=== PATIENT | male | born 1950 | race Caucasian/White ===

== ENCOUNTER 2017-01-06 16:32 | Inpatient (IN) | payer OTHER, MEDICAID ==
[~2017-01-06] VITALS: Ht 162.6 cm; Wt 95.2 kg
[2017-01-06 18:57] LABS: BASOPHIL % 0.2 % (0-2); PLATELET COUNT 211 x10^3mcL (130-400)
[2017-01-06] MEDS ORDERED: GOOD SENSE OMEP20 MG PO (19:00)
[2017-01-06] MEDS ORDERED: LASIX20 MG PO (19:00)
[2017-01-06] MEDS ORDERED: LIPITOR80 MG PO (19:00)
[2017-01-06] MEDS ORDERED: NOR10 PO (19:00)
[2017-01-06] MEDS ORDERED: GLIMEPIRIDE4 M1 PO (19:00)
[2017-01-06] MEDS ORDERED: TOPROL XL25 MG PO (19:01)
[2017-01-06] MEDS ORDERED: METFORMIN HCL1000 MG PO (19:01)
[2017-01-06] MEDS ORDERED: XARELTO10 M1 PO (19:01)
[2017-01-06] MEDS ORDERED: TOPCARE ASPIRIN81 MG PO (19:02)
[2017-01-06] MEDS ORDERED: FLO4 PO (19:02)
[2017-01-06 19:04] LABS: RED CELL DISTRIBUTION WIDTH 16.2 % (11.5-14.5)
[2017-01-06 19:05] LABS: CALCIUM 8.8 mg/dL (8.5-10.1); CARBON DIOXIDE 28.8 mmol/L (21-32); CHLORIDE SERUM 106 mmol/L (98-107); CREATININE SERUM 1.2 mg/dL (0.7-1.3); GFR1 > 60 mL/min; GLUCOSE SERUM 190 mg/dL (74-106); POTASSIUM SERUM 3.2 mmol/L (3.5-5.1); SODIUM SERUM 145 mmol/L (136-145)
[2017-01-06 19:10] LABS: ALBUMIN 3.6 g/dL (3.4-5.0); ALKALINE PHOSPHATASE 100 U/L (46-116); ALT/SGPT 27 U/L (16-63); AST/SGOT 17 U/L (15-37); BILIRUBIN TOTAL 0.5 mg/dL (0.20-1.00); TOTAL PROTEIN, SERUM 7.8 g/dL (6.4-8.2)
[2017-01-06 19:55] VITALS: BP 119/80
[2017-01-06 19:58] VITALS: Ht 162.6 cm; Wt 95.2 kg
[2017-01-06 22:36] LABS: MAGNESIUM 1.6 mg/dL (1.8-2.4); PHOSPHOROUS 4.2 mg/dL (2.5-4.9)
[2017-01-06 22:50] LABS: T3 TOTAL 1.25 ng/mL
[2017-01-06 23:09] LABS: FREE T4 1.19 ng/dL (0.76-1.46); FREE THYROXINE INDEX 3.2 ug/dL (1.4-4.5); T4(THYROXINE) 8.5 ug/dL (4.7-13.3)
[2017-01-06 23:28] VITALS: BP 128/78
[2017-01-06 23:40] VITALS: BP 128/78
[2017-01-07 05:19] VITALS: BP 96/62
[2017-01-07 06:00] LABS: PLATELET COUNT 184 x10^3mcL (130-400)
[2017-01-07 06:17] LABS: CALCIUM 8.3 mg/dL (8.5-10.1); CARBON DIOXIDE 29.2 mmol/L (21-32); CHLORIDE SERUM 105 mmol/L (98-107); GFR1 > 60 mL/min; GLUCOSE SERUM 277 mg/dL (74-106); HDL CHOLESTEROL 44 mg/dL (40-60); POTASSIUM SERUM 4.2 mmol/L (3.5-5.1); SODIUM SERUM 140 mmol/L (136-145); TRIGLYCERIDES 52 mg/dL (<150)
[2017-01-07 06:19] LABS: CHOLESTEROL 131 mg/dL (<200)
[2017-01-07 06:34] LABS: BASOPHIL % 0 % (0-2); MAGNESIUM 1.6 mg/dL (1.8-2.4); PHOSPHOROUS 3.3 mg/dL (2.5-4.9)
[2017-01-07 08:57] VITALS: BP 118/84
[2017-01-07 10:29] LABS: microscopic required? NO
[2017-01-07 12:14] LABS: UA SPECIFIC GRAVITY 1.025 (1.005-1.035); urine erythrocyte NEGATIVE (NEGATIVE)
[2017-01-07] MEDS ORDERED: LANTUS SOLOS100 U/M1 SQ (13:07)
[2017-01-07 14:21] VITALS: BP 124/72
[2017-01-07 16:18] LABS: AMPHETAMINE QUAL UR NONE DETECTED (NEG <=1000)
[2017-01-07 17:18] VITALS: BP 121/78
[2017-01-07 20:31] VITALS: BP 107/75
[2017-01-08 04:41] VITALS: BP 135/90
[2017-01-08 06:17] LABS: PLATELET COUNT 163 x10^3mcL (130-400)
[2017-01-08 06:18] LABS: BASOPHIL % 0 % (0-2); RED CELL DISTRIBUTION WIDTH 16.5 % (11.5-14.5)
[2017-01-08 07:18] LABS: CALCIUM 8.4 mg/dL (8.5-10.1); CARBON DIOXIDE 28.5 mmol/L (21-32); CHLORIDE SERUM 105 mmol/L (98-107); CREATININE SERUM 0.9 mg/dL (0.7-1.3); GFR1 > 60 mL/min; GLUCOSE SERUM 293 mg/dL (74-106); PHOSPHOROUS 4.2 mg/dL (2.5-4.9); POTASSIUM SERUM 4.7 mmol/L (3.5-5.1); SODIUM SERUM 140 mmol/L (136-145)
[2017-01-08 08:00] VITALS: BP 117/80
[2017-01-08 14:45] VITALS: BP 111/64
[2017-01-08 17:24] VITALS: BP 114/81
[2017-01-08 20:22] VITALS: BP 113/66
[2017-01-09 04:46] VITALS: BP 121/89
[2017-01-09 06:09] LABS: PLATELET COUNT 186 x10^3mcL (130-400)
[2017-01-09 06:25] LABS: BASOPHIL % 0 % (0-2); RED CELL DISTRIBUTION WIDTH 16.5 % (11.5-14.5)
[2017-01-09 06:39] LABS: CALCIUM 8.3 mg/dL (8.5-10.1); CHLORIDE SERUM 108 mmol/L (98-107); CREATININE SERUM 0.9 mg/dL (0.7-1.3); GFR1 > 60 mL/min; GLUCOSE SERUM 211 mg/dL (74-106); MAGNESIUM 2.3 mg/dL (1.8-2.4); PHOSPHOROUS 4.5 mg/dL (2.5-4.9); POTASSIUM SERUM 4.7 mmol/L (3.5-5.1); SODIUM SERUM 141 mmol/L (136-145)
[2017-01-09 08:22] VITALS: BP 115/80
[2017-01-09 17:45] VITALS: BP 132/89
[2017-01-09 20:38] VITALS: BP 131/93
[2017-01-10] MEDS ORDERED: MEDDP PO (05:21)
[2017-01-10] MEDS ORDERED: BEN50 PO ×2 (05:21→16:52)
[2017-01-10 05:59] VITALS: BP 130/96
[2017-01-10 06:14] LABS: PLATELET COUNT 173 x10^3mcL (130-400)
[2017-01-10 06:27] LABS: BASOPHIL % 0 % (0-2); RED CELL DISTRIBUTION WIDTH 16.9 % (11.5-14.5)
[2017-01-10 06:28] LABS: CALCIUM 8.3 mg/dL (8.5-10.1); CARBON DIOXIDE 32.8 mmol/L (21-32); CHLORIDE SERUM 108 mmol/L (98-107); CREATININE SERUM 0.8 mg/dL (0.7-1.3); GFR1 > 60 mL/min; GLUCOSE SERUM 127 mg/dL (74-106); SODIUM SERUM 145 mmol/L (136-145)
[2017-01-10 08:25] VITALS: BP 137/91
[2017-01-10 12:55] VITALS: BP 105/64
[2017-01-10 13:06] VITALS: BP 157/93
[2017-01-10 15:40] VITALS: BP 105/64
== END 2017-01-10 18:20 | disposition home or self-care (01) | DRG 177 ==
LOC: ED 16:32 → MU 18:48 → DU 18:48 → MU 01-09 01:58
PROVIDERS: Emergency Medicine; Family Medicine; ADMIT Family Medicine
DX: J69.0 Pneumonitis due to inhalation of food and vomit (principal); N17.0 Acute kidney failure with tubular necrosis; T78.2XXA Anaphylactic shock, unspecified, initial encounter; D68.69 Other thrombophilia; R06.02 Shortness of breath; T63.441A Toxic effect of venom of bees, accidental (unintentional), initial encounter; E11.65 Type 2 diabetes mellitus with hyperglycemia; E11.51 Type 2 diabetes mellitus with diabetic peripheral angiopathy without gangrene; I48.91 Unspecified atrial fibrillation; E86.0 Dehydration; E87.6 Hypokalemia; K21.9 Gastro-esophageal reflux disease without esophagitis; N40.0 Benign prostatic hyperplasia without lower urinary tract symptoms; E78.5 Hyperlipidemia, unspecified; I10 Essential (primary) hypertension; X58.XXXA Exposure to other specified factors, initial encounter; E66.9 Obesity, unspecified; Z79.4 Long term (current) use of insulin; Z68.36 Body mass index [BMI] 36.0-36.9, adult; Z87.891 Personal history of nicotine dependence
CPT/HCPCS: 83880; 84439; 86480; 86580; 87116; 87206; 94150; J0171; J1200; J1815; J1940; J1956; J2060; J2920; J2930; J3490; J7030; J7620; Q0092; Q9967